=== PATIENT | female | born 1935 | race Caucasian/White ===

== ENCOUNTER 2020-01-25 14:41 | Inpatient (IN) | payer MEDICARE ==
[2020-01-25] VITALS (77 sets, daily range): BP systolic 134–153; BP diastolic 64–83; PULSE 94–118; TEMP 97.1–97.8; O2SAT 90–99
[~2020-01-25] VITALS: Ht 165.1 cm; Wt 72.8 kg
--- NOTE | 2020-01-25 17:00 | NUR ---
PATIENT ADMITED INTO ROOM 323 VIA [facility]. PATIENT HAS BEEN HOSPITALIZED IN [place] FOR THE LAST COUPLE DAYS AND HAS NOT IMPROVED. CT IN [place] INDICATED BOWL PERF, PATIENT TRANSFERED HERE. PATIENT C/O DISTENDED ABD THAT IS MAKING IT DIFFICULT TO BREATH. PATIENT IS ON O2 AT 2L WITH SATS IN MID 90'S. HOB AT 90 DEGREES. DYSPNEA AT REST. ABD IS DISTENDED WITH HYPO ACTIVE BOWL SOUNDS. PATIENT REPORTS SEVERAL LOOSE STOOLS TODAY. NO C/O N/V. PATIENT REPORTS SHE WAS ABLE TO EAT A LITTLE FOR LUNCH TODAY BUT HER APPETITE IS DECREASED. MOST OF HER HOME MEDICATIONS WERE HELD, PATIENT IS UNSURE WHEN SHE LAST TOOK HER HOME MEDICATIONS BUT THINKS IT MIGHT HAVE BEEN Jan. PATIENT ADMITED WITH RIGHT AC IV, NS NOW INFUSING VIA PUMP. PATIENT IS NPO FOR PENDING SURGERY. CALLING FAMILY. CONSENT ON CHART. HEAD TO TOE ASSESSMENT COMPLETE.
[2020-01-25] MEDS ORDERED: MIRALAX PA17 GM/Dose PO (17:52)
[2020-01-25] MEDS ORDERED: TUMS EXTRA STR750 MG PO (17:52)
[2020-01-25] MEDS ORDERED: COZAAR 50MG50 MG/TAB PO (17:52)
[2020-01-25] MEDS ORDERED: MILK OF MA400 MG/52 PO (17:53)
[2020-01-25] MEDS ORDERED: ZOSYN 4 GM-0.51 PD1 IV (17:54)
[2020-01-25] MEDS ORDERED: VOLTAREN-XR100 MG PO (17:54)
[2020-01-25] MEDS ORDERED: TYLENOL 325MG325 MG PO (17:55)
[2020-01-25] MEDS ORDERED: ZOFRAN INJ4 MG/2 ML IV (17:56)
[2020-01-25] MEDS ORDERED: CALCIUM 600 PLU1 TAB PO (17:57)
[2020-01-25] MEDS ORDERED: NORVASC 10MG10 MG PO (17:57)
[2020-01-25] MEDS ORDERED: HCTZ12.5TAB PO (17:58)
[2020-01-25] MEDS ORDERED: TOPROL XL100 MG PO (17:58)
--- NOTE | 2020-01-25 21:44 | NUR ---
CALLED FROM PACU TO DO A BREATHING TX ON A PATIENT WHO IS HAVING SEVERE SOB. UPON ARRIVING TO PACU PATIENT HAS INSPIRATORY AND EXPIRATORY WHEEZES AND IS SHORT OF BREATH SAY THAT "SHE CAN NOT BREATHE". DELIVERED ONE DUONEB AND THE PATIENT NOW HAS SOB AND EXPIRATORY WHEEZES WITH HEART RATE IN THE 130-140'S. STILL FEELING THOUGH SHE CAN NOT BREATHE. DELIVERED ANOTHER TREATMENT WITH XOPENX AFTER CONSULTING ITALIA VELASQUEZ ABOUT XOPENEX VS. DUONEB. PATIENT IS STILL IN 140'S AND DO NOT WANT TO INCREASE HER HEART RATE ANY MORE. POST TREATMENT PATIENT STILL FEELS THOUGH SHE CANNOT BREATHE BUT LOOKS MUCH BETTER AND HEART RATE IS DOWN IN THE 110-120'S.
--- NOTE | 2020-01-25 22:00 | NUR ---
PT arrived to unit from PACU accompanied by 2 RN's. PT transferred bed to bed and attached to CRM monitor, oxygen on 6L OM, NG to LIS. PT oriented to room, POC, and assessed for pain. PT denies pain but does states some SOA and unable to take a deep breath, O2 sats in the mid-high 90's.
--- NOTE | 2020-01-25 22:43 | NUR ---
PT is pale but cap refill is noted to be <3 seconds, pulses +2 radially and on PT, DP pulses are +1 due to chronic edema.
[2020-01-26] VITALS (506 sets, daily range): BP systolic 119–146; BP diastolic 60–87; PULSE 74–105; TEMP 97.5–98.4; O2SAT 87–98
[2020-01-26 04:18] LABS: HEMATOCRIT 33.5 % (37.0-47.0); HEMOGLOBIN 11.7 g/dl (12.5-16.0); MEAN CELL VOLUME 93 fl (80.0-100.0); MEAN CORPUSCULAR HEMOGLOBIN 32 pg (27.0-31.0); MEAN CORPUSCULAR HGB CONC 35 g/dl (33.0-37.0); MEAN PLATELET VOLUME 9.1 fl (7.4-10.4); PLATELET COUNT 260 K/mm3 (130-400); RED BLOOD COUNT 3.62 M/mm3 (4.10-5.30); REDCELL DISTRIBUTION WIDTH-CV 12.4 % (11.5-14.5)
[2020-01-26 04:28] LABS: CALCIUM 9.1 mg/dL (8.4-10.2); CREATININE, serum 0.42 (0.52-1.25); MAGNESIUM 1.7 mg/dL (1.6-2.3); PHOSPHOROUS 2.1 mg/dL (2.5-4.5); POTASSIUM 3.6 mmol/L (3.4-5.0)
--- NOTE | 2020-01-26 05:00 | NUR ---
PT rested well throughout the night, states only pain is tenderness to abdomen with touch. Oriented patient to tubes and lines, surgical sites. PT verbalized understanding and thanked for the education.
--- NOTE | 2020-01-26 08:26 | NUR ---
Sitting up legs dangled, reports sharp pain to L upper and lower quadrant, morphine given, increasing activity. VSS. Lungs clear SPO2 on 2L 94%
--- NOTE | 2020-01-26 11:10 | NUR ---
SW met with the patient to discuss discharge plan. The patient lives in [place] with her , Albin (ph#[phone]). She reports independence with ADLs and has a cane and walker. The patient's PCP is Dr. Savage Chavez and she receives her medications from [facility]. She reports no difficulties obtaining her meds. The patient does not have advanced directives in EMR, but she reports that she does have them completed and at home. She states that her sons: Niles (ph#[phone]) and Milton Velasquez are her DPOA-HC. The patient requested that SW contact and update her son, Niles. She states that her had a stroke two years ago and that she and family help take care of him. The patient plans to return home upon discharge. She states that her son, Niles, and [id number] live right next to them and that she has lots of family support to help her. DIONNE then contacted and reviewed d/c plan with the patient's son, Niles. Niles confirmed the above information. Niles reports that he realizes him mother will need more help when she discharges. He states that they have a neighbor that is a retired RN that helped the patient in the past after a knee surgery. He states that he plans to contact her to see if she can help again. SW asked the patient's RN for PT/OT to be ordered. SW to continue to follow.
[2020-01-27 03:34] VITALS: BP 152/79; PULSE 92; TEMP 98.4
--- NOTE | 2020-01-27 04:09 | NUR ---
Pt currently resting in bed. Pt accidently pulled out her NG tube this morning. Dr. Starr was contacted at this time. Pt denies any nausea or vomiting. Pt stated that she doesn't remember if she has been passing gas or not. Pt did get up and void using the bedside commode. Pt now has her call light within reach and her bed is in lowest position. Pt had little drainage in her NG canister during this shift.
--- NOTE | 2020-01-27 06:24 | NUR ---
Pt currently laying in bed resting. Pt denies any pain or nausea. Pt did state that she was able to pass a lot of gas this morning. Pt has her call light within reach and her bed is in lowest position and her call light is within reach,bed alarm is on at this time.
[2020-01-27 06:30] LABS: HEMOGLOBIN 11.2 g/dl (12.5-16.0); MEAN CELL VOLUME 95 fl (80.0-100.0); MEAN CORPUSCULAR HEMOGLOBIN 31 pg (27.0-31.0); MEAN CORPUSCULAR HGB CONC 33 g/dl (33.0-37.0); MEAN PLATELET VOLUME 9.4 fl (7.4-10.4); PLATELET COUNT 291 K/mm3 (130-400); RED BLOOD COUNT 3.58 M/mm3 (4.10-5.30)
[2020-01-27 06:43] LABS: CALCIUM 9.5 mg/dL (8.4-10.2); CREATININE, serum 0.49 (0.52-1.25); POTASSIUM 3.5 mmol/L (3.4-5.0)
[2020-01-27 07:22] VITALS: BP 147/67; PULSE 83; TEMP 98.6
--- NOTE | 2020-01-27 08:45 | NUR ---
Patient alert and oriented, answers questions appropriately. See assessment. Abdomen soft, non tender, non distended. Bowel sounds active x4 quads. +Flatus. +Bowel movement. Midline incision with edges well approximated, no redness or drainage noted. KEVIN to RUQ with scant amount serosanguinous drainage noted. Post op exercises reviewed with patient. No c/o at this time.
[2020-01-27] MEDS ORDERED: CENTRUM1 TA1 (11:26)
[2020-01-27 11:35] VITALS: BP 143/66; PULSE 89; TEMP 98.7
[2020-01-27 15:31] VITALS: BP 147/70; PULSE 78; TEMP 97.3
--- NOTE | 2020-01-27 18:54 | NUR ---
Received report from KAY Back. Pt is currently sitting up in her chair. Pt has her call light within reach.
[2020-01-27 19:29] VITALS: BP 141/67; PULSE 78; TEMP 97.4
[2020-01-27 23:51] VITALS: BP 150/66; PULSE 76; TEMP 98.1
[2020-01-28 04:09] VITALS: BP 161/66; PULSE 72; TEMP 98.1
--- NOTE | 2020-01-28 05:17 | NUR ---
Pt has ambulated to the restroom a couple times during the night. Pt has ambulated well with the gait belt and her walker. Pt has not complained of any pain throughout the night. Pt has 4 abdomen lap sites and the area where her KEVIN drain is. They are all open to air and clean, dry, and intact. Pt is currently tolerating fluids well. Pt fluids are INT and she is still getttin Zosyn as scheduled. Pt has her call light within reach and her bed is in lowest position.
--- NOTE | 2020-01-28 05:30 | NUR ---
Pt ambulated to the restroom. Pt underwear were wet at the top. I wasn't sure if it was from the KEVIN drain no properly closed or the incision around the KEVIN drian. So I put a split gauze around it just to see if it had any drainage. Pt is currently back in bed with her heels floated, she has her call light within reach.
[2020-01-28 07:30] VITALS: BP 138/70; PULSE 71; TEMP 98.1
--- NOTE | 2020-01-28 08:38 | NUR ---
Patient up to the chair this am. She was up to the bathroom & reports passing flatus & small BM. Patient tolerated clear liquids for breakfast. Patient reports sore bottom & legs from working with therapy yesterday. Tyelnol given. Patient Vitaly drain to compression. Iv antibioitcs as ordered. Will monitor.
[2020-01-28 11:18] VITALS: BP 128/62; PULSE 68; TEMP 97.2
--- NOTE | 2020-01-28 13:51 | NUR ---
Patient back in bed wanting to take an afternoon nap. Patient has been up and down to bathroom multiple times to void & pass flatus. Dr. Sotelo rounded & patient was progressed to low fiber diet. She tolerated her lunch, denies nausea. Patient denies needs at this time
[2020-01-28 15:33] VITALS: BP 111/64; PULSE 78; TEMP 97.4
--- NOTE | 2020-01-28 18:55 | NUR ---
Patient sitting up in chair. Tolerated dinner. Tylenol for muscular pain. Continues to void fairly frequently. Passing flatus. Vitaly drain to bulb compression. lap sites edges well approximated. Bedside report to Inocente VILLANUEVA
[2020-01-28 20:00] VITALS: BP 123/55; PULSE 82; TEMP 97.5
[2020-01-29 00:12] VITALS: BP 136/65; PULSE 83; TEMP 97.7
[2020-01-29 04:00] VITALS: BP 131/60; PULSE 79; TEMP 97.6
--- NOTE | 2020-01-29 05:34 | NUR ---
RESTING QUIETLY MOST OF NIGHT EXCEPT FOR FREQUENT TRIPS TO BATHROOM. PT'S MAIN COMPLAINTS OF PAIN WERE R/T DOING THERAPY YESTERDAY. DRAINAGE FROM KEVIN STARTED OFF WITH SOME COLORATION, PINKISH, FROM BLOOD BUT HAS CLEARED UP THE SHIFT PROGRESSED. 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
--- NOTE | 2020-01-29 07:31 | NUR ---
Patient up to chair eating her low fiber breakfast. She denies nausea. Abdomen soft. lap site edges well approximated. Vitaly drain with serous drainage this am. new gauze drain spounge around drain site. drainge noted. Tylenol for generalized pain. Int. Patient voids adequately. Will monitor
[2020-01-29 07:45] VITALS: BP 117/54; PULSE 99; TEMP 98.4
[2020-01-29] MEDS ORDERED: PROTONIX 40MG T40 MG PO (08:35)
[2020-01-29] MEDS ORDERED: AMOXICILLIN 8751 TAB PO (08:35)
--- NOTE | 2020-01-29 11:00 | NUR ---
Patient sitting up in chair. She had a shower this am with Business Economist assist. Patietn feeling refreshed after. rounded & orders obtained, Patient plans for discharge later this afternoon. Vitaly drain was discontinued & patient tolerated well. Property Assistant notifed, patient has questions on low fiber diet, [place] to see patient. notifed family of plan of care & patient also had spoken to her family. Will continue to [place].
--- NOTE | 2020-01-29 12:09 | NUR ---
Patient working on lunch. Spoke to daughter Rhea on the phone, plan to pick her up around 2. Patient ambulated halls stand by assist. She reports feeling much improved from drain now removed.
[2020-01-29 12:46] VITALS: BP 108/57; PULSE 84; TEMP 97.7
--- NOTE | 2020-01-29 14:44 | NUR ---
Patient ready for discharge her daughter & spouse here to take her home. Patient given all discharge teaching, we discussed diet & activty restrictions. Incisions care & signs & symptoms to report to doctor reviewed. patient to call office tmrw for follow up appt. Patient given script for augmentin & protonix, home meds list reviewed with last dose take, & discontinued medications. Patient wheeled out with all belongigns.
== END 2020-01-29 14:47 | disposition home or self-care (01) | DRG 329 ==
LOC: SURG 14:41 → ICU 16:42 → SURG 16:42 → ICU 21:59 → SURG 01-26 18:19
PROVIDERS: ADMIT Surgery
PROC: 0DU947Z Supplement Duodenum with Autologous Tissue Substitute, Percutaneous Endoscopic Approach (ICD-10-PCS; principal; 2020-01-26)
DX: K26.5 Chronic or unspecified duodenal ulcer with perforation (principal); K65.8 Other peritonitis; E87.1 Hypo-osmolality and hyponatremia; I10 Essential (primary) hypertension; E78.5 Hyperlipidemia, unspecified; M19.90 Unspecified osteoarthritis, unspecified site
CPT/HCPCS: A4314; A9284; C9113; J0330; J0690; J1100; J1885; J2270; J2405; J2543; J2704; J3010; J7030